=== PATIENT | female | born 1990 | race Hispanic/Latino ===

== ENCOUNTER 2017-01-15 00:57 | Observation (INO) | payer SELFPAY ==
--- NOTE | 2017-01-15 01:36 | ED PDOC ---
HPI: Psych/Substance Abuse Time Seen by Provider: 01/15/17 01:01 Chief Complaint (Nursing): Alcohol Ingestion Chief Complaint (Provider): Alcohol Ingestion ED Caveat: Intoxicated History Per: EMS History/Exam Limitations: intoxication Severity: Moderate Additional Complaint(s): 26 year old female is brought into the ED by EMS for alcohol ingestion. Unable to obtain HPI due to patient's intoxication. Past Medical History Reviewed: Unable To Obtain (due to intoxication) Vital Signs: Last Vital Signs Temp 98.3 F 01/15/17 00:58 Pulse 108 H 01/15/17 00:58 Resp 16 01/15/17 00:58 BP 138/96 H 01/15/17 00:58 Pulse Ox 98 01/15/17 00:58 - Home Medications Home Medications: Ambulatory Orders Medication Instructions Recorded Ibuprofen [Motrin] 600 mg PO Q6 PRN #10 tab 12/25/14 - Allergies Allergies/Adverse Reactions: Allergies Allergy/AdvReac Type Severity Reaction Status Date / Time Penicillins Allergy Verified 01/15/17 01:04 Review of Systems Review Of Systems: ROS cannot be obtained secondary to pt's inabilty to answer questions. (due to intoxication) Physical Exam - Reviewed Nursing Documentation Reviewed: Yes Vital Signs Reviewed: Yes - Physical Exam Appears: Positive for: Well, Non-toxic (lethargic, but arousable), No Acute Distress Head Exam: Positive for: ATRAUMATIC, NORMOCEPHALIC Skin: Positive for: Normal Color, Warm, Dry Eye Exam: Positive for: EOMI, PERRL, Conjunctival injection ENT: Positive for: Other (tacky mucous membranes. alcohol on breath) Neck: Positive for: Normal Cardiovascular/Chest: Positive for: Regular Rate, Rhythm Respiratory: Positive for: Normal Breath Sounds. Negative for: Respiratory Distress Gastrointestinal/Abdominal: Positive for: Normal Exam, Soft. Negative for: Tenderness Extremity: Positive for: Normal ROM. Negative for: Deformity, Swelling Neurologic/Psych: Positive for: Other (sleepy, slurred speech, poor concentration). Negative for: Alert, Motor/Sensory Deficits - ECG O2 Sat by Pulse Oximetry: 98 (RA) Pulse Ox Interpretation: Normal Medical Decision Making Medical Decision Makin:01 Initial impression: 26 year old female intoxicated. Initial plan: * alcohol serum * accucheck * reevaluation 1:05 Patient is being placed into ED observation pending clinical sobriety. See ED observation note for further updates. Scribe Attestation: Documented by Jazzy Lyn, acting as a scribe for Opal Monzon MD. Provider Scribe Attestation: All medical record entries made by the Scribe were at my direction and personally dictated by me. I have reviewed the chart and agree that the record accurately reflects my personal performance of the history, physical exam, medical decision making, and the department course for this patient. I have also personally directed, reviewed, and agree with the discharge instructions and disposition. ED OBSERVATION Date of observation admission: 01/15/17 Time of observation admission: 01:05 - Observation admission statement Patient is being placed in observation because:: Anticipated prolonged observation due to patient being intoxicated. - Goals of Observation Goals of observation are:: Sobriety and ability to care for self. Disposition - Disposition Referrals: Alcoholics Anonymous [Outside] Disposition: Routine/Home Disposition Time: 01:00 Condition: IMPROVED Additional Instructions: DRINK IN MODERATION OR DON'T DRINK AT ALL Instructions: Alcohol Intoxication (ED)
[2017-01-15 06:25] VITALS: BP 132/78; PULSE 86; RESP 18; TEMP 98; O2SAT 100
== END 2017-01-15 06:44 | disposition home or self-care (01) ==
LOC: H.ER 00:57 → H.EROBSV 01:05 → H.ER 06:26
PROVIDERS: ADMIT Emergency Medicine; ATTEND Emergency Medicine
DX: F10.129 Alcohol abuse with intoxication, unspecified (principal)
CPT/HCPCS: 82948; 99283; G0378; G0480